=== PATIENT | female | born 1995 | race Caucasian/White ===

== ENCOUNTER 2023-02-26 17:50 | Day surgery (SDC) | payer OTHER ==
[2023-02-26 18:22] VITALS: BMI 36.6
[2023-02-26] MEDS ORDERED: hydrALAZINE 20 MG/ML VIAL SLOW IVP PRN (18:51)
[2023-02-26] MEDS ORDERED: Lactated Ringer's 1,000 ML IV SCH ×2 (19:00→21:15)
[2023-02-26] MEDS ORDERED: Acetaminophen 500 MG TAB PO SCH (19:00)
[2023-02-26 19:36] LABS: #Basophils 0.1 10x3/uL (0.0-0.2); #Eosinphils 0.1 10x3/uL (0.0-0.5); #Monocytes 0.6 10x3/uL (0.0-1.1); %Basophils 0.5 % (0.0-2.0); %Eosinophils 1.3 % (0.0-6.0); %Lymphocytes 20.8 % (18.0-47.0); %Monocytes 6.3 % (0.0-10.0); %Neutrophils 70.4 % (40.0-75.0); Hematocrit 34.9 % (34.9-44.5); Hemoglobin 11.7 g/dL (12.0-15.5); Mean Corpuscular HGB CONC 33.5 g/dL (32.0-36.0); Mean Corpuscular Hemoglobin 29.1 pg (27.0-33.0); Mean Corpuscular Volume 86.8 fl (81.6-98.3); Mean Platelet Volume 10.3 fl (7.4-10.4); Platelet Count 301 10x3/uL (150-450); RBC Distribution Width 12.7 % (11.5-14.5); Red Blood Cell (RBC) Count 4.02 10x6/uL (3.90-5.03); White Blood Cell (WBC) Count 9.9 10x3/uL (3.5-10.5)
[2023-02-26 19:51] LABS: ALT (SGPT) 11 U/L (8-55); AST (SGOT) 14 U/L (5-34); Albumin 3.5 g/dL (3.5-5.0); Alkaline Phosphatase 112 U/L (40-110); Anion Gap 15 mmol/L (10-20); BUN (Urea Nitrogen) 4 mg/dL (7.0-18.7); Bilirubin, Total 0.3 mg/dL (0.2-1.2); Calc. Creatinine Clearance 202 mL/min (70-130); Calcium 8.5 mg/dL (7.8-10.44); Carbon Dioxide 18 mmol/L (22-29); Chloride 107 mmol/L (98-107); Estimated GFR 120; Globulin 3.1 g/dL (2.4-3.5); Glucose 78 mg/dL (70-105); Lipase 21 U/L (8-78); Potassium 3.6 mmol/L (3.5-5.1); Protein, Total 6.6 g/dL (6.0-8.3); Sodium 136 mmol/L (136-145)
[2023-02-26 20:11] LABS: Bilirubin Neg (Negative); Blood, Urine Negative (Negative); Clarity Clear (Clear); Glucose, Urine (Dipstick) Normal (Negative); Ketone, Urine 15 mg/dL (Negative); Leukocyte 25 (Negative); Nitrite Negative (Negative); Protein, Urine (Dipstick) Negative (Neg-Trace); Specific Gravity, Urine 1.005 (1.005-1.030); Urobilinogen Normal mg/dL (Less than 2)
[2023-02-26 20:36] LABS: CAUTI Indications for Culture Pregnancy; RBC/HPF None Seen HPF (0-3); WBC/HPF 0-3 HPF (0-3)
[2023-02-26 20:37] LABS: Bacteria/HPF 2+ HPF (None Seen); Mucous/LPF 1+ LPF (<2+)
[2023-02-26 20:38] LABS: Urine Culture Reflex Yes Yes
[2023-02-26 20:39] LABS: SARS-CoV-2 NAA Rapid Test Not Detected (NotDetected)
== END 2023-02-26 22:10 | disposition home or self-care (01) ==
LOC: CSHLD/OP 17:50
PROVIDERS: ATTEND Obstetrics & Gynecology
DX: O47.03 False labor before 37 completed weeks of gestation, third trimester (principal); O98.513 Other viral diseases complicating pregnancy, third trimester; O26.43 Herpes gestationis, third trimester; O99.343 Other mental disorders complicating pregnancy, third trimester; F32.A Depression, unspecified; O99.323 Drug use complicating pregnancy, third trimester; F12.90 Cannabis use, unspecified, uncomplicated; O99.213 Obesity complicating pregnancy, third trimester; E66.9 Obesity, unspecified; O34.83 Maternal care for other abnormalities of pelvic organs, third trimester; N83.209 Unspecified ovarian cyst, unspecified side; O34.211 Maternal care for low transverse scar from previous cesarean delivery; O99.891 Other specified diseases and conditions complicating pregnancy; R00.0 Tachycardia, unspecified; O23.593 Infection of other part of genital tract in pregnancy, third trimester; N89.8 Other specified noninflammatory disorders of vagina; B96.89 Other specified bacterial agents as the cause of diseases classified elsewhere; Z91.040 Latex allergy status; Z79.899 Other long term (current) drug therapy; Z20.822 Contact with and (suspected) exposure to COVID-19; Z3A.31 31 weeks gestation of pregnancy
CPT/HCPCS: 36415; 76815; 76856; 80053; 81001; 83690; 85025; 87086; 87480; 87510; 87660; 96360; 96361; 99285; J7120; U0002

== ENCOUNTER 2023-04-21 07:30 | Inpatient (IN) | payer OTHER ==
[2023-04-23 11:14] LABS: Hematocrit 37.5 % (34.9-44.5); Hemoglobin 12.5 g/dL (12.0-15.5); Platelet Count 314 10x3/uL (150-450)
[2023-04-23 14:06] LABS: HBSAg Index 0.18 S/CO (0-0.99); Hep B Surf Ag Non-Reactive S/CO (NonReactive); Syphilis Antibody Nonreactive (Nonreactive); Syphilis Antibody Index 0.04 S/CO (<1.00 Non-Reactive)
[2023-04-26 06:11] VITALS: BMI 37.5
[2023-04-26] MEDS ORDERED: Carboprost 250 MCG/ML AMP IM PRN (06:53)
[2023-04-26] MEDS ORDERED: Misoprostol 200 MCG TAB PR PRN (06:53)
[2023-04-26] MEDS ORDERED: Diphenoxylate HCl/Atropine Tablet PO PRN (06:53)
[2023-04-26] MEDS ORDERED: hydrALAZINE 20 MG/ML VIAL SLOW IVP PRN (06:53)
[2023-04-26] MEDS ORDERED: Bicitra 30 ML UDCUP PO PRN (06:53)
[2023-04-26] MEDS ORDERED: Famotidine/PF 20 mg/2ml Vial SLOW IVP PRN (06:53)
[2023-04-26] MEDS ORDERED: Tranexamic Acid 1,000 MG/10 ML VIAL IVP PRN (06:53)
[2023-04-26] MEDS ORDERED: Promethazine HCl 25 MG/ML VIAL IM PRN ×2 (06:53→06:58)
[2023-04-26] MEDS ORDERED: Methylergonovine 0.2 MG/ML VIAL IM PRN (06:53)
[2023-04-26] MEDS ORDERED: Ondansetron PF 4 MG/2 ML Vial IVP PRN ×3 (06:53→06:58)
[2023-04-26] MEDS ORDERED: CEFAZOLIN 2 GM VIAL ONE (06:57)
[2023-04-26] MEDS ORDERED: Naloxone HCl 0.4 mg/ml Vial IVP PRN ×2 (06:58)
[2023-04-26] MEDS ORDERED: HYDROmorphone 0.5 MG/0.5 ML SYRINGE SLOW IVP PRN (06:58)
[2023-04-26] MEDS ORDERED: Ketorolac Tromethamine 30 MG/ML VIAL IVP PRN ×2 (06:58→16:53)
[2023-04-26] MEDS ORDERED: Meperidine HCl/PF 25 MG/ML VIAL SLOW IVP PRN (06:58)
[2023-04-26] MEDS ORDERED: diphenhydrAMINE 50 MG/ML VIAL IVP PRN (06:58)
[2023-04-26] MEDS ORDERED: fentaNYL 50 mcg/mL 1 mL Vial SLOW IVP PRN (06:58)
[2023-04-26] MEDS ORDERED: Naloxone HCl 0.4 mg/ml Vial IV PRN (06:58)
[2023-04-26] MEDS ORDERED: Moisturizing Cream (Eucerin) 113 GM JAR TOP PRN (06:58)
[2023-04-26] MEDS ORDERED: Promethazine HCl 25 MG SUPP PR PRN (06:58)
[2023-04-26] MEDS ORDERED: Oxytocin 30 units/NS 500 ML 500 ML IV SCH (07:00)
[2023-04-26] MEDS ORDERED: Communication Order-Pharmacy FS SCH (07:00)
[2023-04-26] MEDS ORDERED: CEFAZOLIN 2 GM in Sodium Chloride 0.9% 100 ML IVPB SCH (07:00)
[2023-04-26] MEDS ORDERED: Ketorolac Tromethamine 30 MG/ML VIAL IVP SCH (07:00)
[2023-04-26] MEDS ORDERED: Morphine PF 10 MG/10 ML VIAL ONE (07:13)
[2023-04-26] MEDS ORDERED: fentaNYL 50 mcg/mL 1 mL Vial ONE (07:13)
[2023-04-26] MEDS ORDERED: Ondansetron PF 4 MG/2 ML Vial ONE (07:13)
[2023-04-26] MEDS ORDERED: PHENYLEPHRINE-NS 100 MCG/ML 10 ML SYRINGE ONE (07:13)
[2023-04-26] MEDS ORDERED: Dexamethasone 4 mg/ml Vial ONE (07:13)
[2023-04-26] MEDS ORDERED: Oxytocin 10 UNITS/ML VIAL ONE (07:14)
[2023-04-26] MEDS ORDERED: diphenhydrAMINE 50 MG/ML VIAL ONE (08:34)
[2023-04-26] MEDS ORDERED: Boostrix 0.5 ML (Tdap) VIAL (>/=7 yrs of age) IM ONE (09:23)
[2023-04-26] MEDS ORDERED: Lanolin Ointment 7 GM TUBE TOP PRN (09:23)
[2023-04-26] MEDS ORDERED: Simethicone Chewable 80 MG TAB PO PRN (09:23)
[2023-04-26] MEDS ORDERED: Acetaminophen 325 MG TAB PO PRN (09:23)
[2023-04-26] MEDS ORDERED: Ibuprofen 800 MG TAB PO SCH (14:00)
[2023-04-26] MEDS: diphenhydrAMINE 25 MG CAP PO PRN ×2 (15:01→21:31)
[2023-04-26] MEDS: Docusate 100 MG CAP PO SCH (21:24)
[2023-04-26] MEDS: Ketorolac Tromethamine 30 MG/ML VIAL IVP PRN (23:46)
[2023-04-27 03:50] LABS: Hematocrit 30.7 % (34.9-44.5); Hemoglobin 10.1 g/dL (12.0-15.5); Mean Corpuscular HGB CONC 32.9 g/dL (32.0-36.0); Mean Corpuscular Volume 88.2 fl (81.6-98.3); Mean Platelet Volume 10.9 fl (7.4-10.4); Platelet Count 250 10x3/uL (150-450); RBC Distribution Width 13.3 % (11.5-14.5); Red Blood Cell (RBC) Count 3.48 10x6/uL (3.90-5.03); White Blood Cell (WBC) Count 12.4 10x3/uL (3.5-10.5)
[2023-04-27] MEDS: diphenhydrAMINE 25 MG CAP PO PRN (05:04)
[2023-04-27] MEDS: Ketorolac Tromethamine 30 MG/ML VIAL IVP PRN ×2 (07:04→14:53)
[2023-04-27] MEDS ORDERED: Ferrous Sulfate 325 MG TAB PO SCH (08:00)
[2023-04-27] MEDS: Docusate 100 MG CAP PO SCH ×2 (09:47→19:52)
[2023-04-27] MEDS: HYDROcodone/Acetaminophen 5/325 mg Tablet PO PRN ×2 (09:47→19:52)
[2023-04-27] MEDS: Prenatal Vitamin 1 TAB PO SCH (09:47)
[2023-04-27] MEDS: Ibuprofen 800 MG TAB PO SCH (21:20)
[2023-04-28] MEDS: Ibuprofen 800 MG TAB PO SCH (05:50)
[2023-04-28] MEDS: HYDROcodone/Acetaminophen 5/325 mg Tablet PO PRN ×2 (05:51→10:58)
[2023-04-28 07:38] VITALS: BP 113/68; TEMP 97.9
[2023-04-28] MEDS ORDERED: Ferrous Sulfate 325 MG TAB PO SCH (08:00)
[2023-04-28] MEDS: Prenatal Vitamin 1 TAB PO SCH (08:36)
[2023-04-28] MEDS: Docusate 100 MG CAP PO SCH (08:36)
== END 2023-04-28 13:41 | disposition home or self-care (01) | DRG 788 ==
LOC: CSHLD 04-26 05:24 → CSHPP 04-26 11:30
PROVIDERS: ADMIT Obstetrics & Gynecology; ATTEND Obstetrics & Gynecology
PROC: 10D00Z1 Extraction of Products of Conception, Low, Open Approach (ICD-10-PCS; principal; 2023-04-26)
DX: O34.211 Maternal care for low transverse scar from previous cesarean delivery (principal); O99.344 Other mental disorders complicating childbirth; Z3A.39 39 weeks gestation of pregnancy; Z37.0 Single live birth; F31.9 Bipolar disorder, unspecified
CPT/HCPCS: 36415; 51702; 85014; 85018; 85027; 85049; 86780; 86850; 86900; 86901; 87340; J1100; J1200; J1885; J2175; J2274; J2405; J2590; J3010